=== PATIENT | female | born 1975 | race Caucasian/White ===

== ENCOUNTER 2024-10-19 20:44 | Emergency (ER) | payer OTHER, SELFPAY ==
[2024-10-19 20:52] VITALS: BP 177/92; PULSE 93; RESP 16; TEMP 37.4; O2SAT 98; BMI 34.2
[2024-10-19 21:33] LABS: Bacteria Urine Moderate (10-30); RBC Urine None Seen (0-5/HPF); Urine Volume 10mL (spun); WBC Urine 5-10/HPF (0-5/HPF)
[2024-10-19 21:34] LABS: Culture Indicated Urine Cult Not Indicated; Squamous Epithelial Cell Urine 1-5 /HPF (0-5/HPF)
--- NOTE | 2024-10-19 21:54 | ED.ABDPAIN ---
HPI - Abdominal Pain General Chief Complaint: Abdominal Pain Stated Complaint: near syncope, rt flank px t-7 Time Seen by Provider: 10/19/24 21:52 Source: patient, RN notes reviewed and old records reviewed Mode of arrival: Family Vehicle Limitations: no limitations History of Present Illness HPI narrative: 49-year-old female history of fibromyalgia, levothyroxine, mood disorder who presents with complaint of right flank pain that has been present since just before Zay approximately 6-7 days. Patient states has been mostly flank pain. She thought she was getting a UTI was drinking lot of water and cranberry juice but pain has continued to increase over time. She states it sort of waxes and wanes in intensity but is worse today. Movement does not increase it as well. Patient states she has not had any fevers. She has had nausea but no emesis. Denies any dysuria urgency or frequency or hematuria but notes she has had UTIs in the past without any symptoms. Does not report any history of pyelonephritis. States pain is more in the back but does come around to the side. States she has had prior appendectomy, does still have her gallbladder. Patient states home medications include Lyrica, levothyroxine, lamotrigine, duloxetine, escitalopram and trazodone. Patient states she has not allergy to Celebrex but can take ibuprofen without issue. No reported history of kidney stones. Related Data Previous Rx's Medication Instructions Recorded ciprofloxacin HCl 500 mg tablet 500 mg PO BID #20 tabs 10/19/24 Allergies Allergy/AdvReac Type Severity Reaction Status Date / Time celecoxib [From Celebrex] Allergy Swelling Verified 10/19/24 22:04 of Lip/Tongue/Throat Review of Systems Review of Systems ROS Unobtainable: All systems reviewed & are unremarkable except as noted in HPI and below Exam Narrative Exam Narrative: GENERAL: Alert and oriented x three, female in moderate distress HEENT: Head normocephalic, atraumatic, EOMI, pupils reactive, face symmetric, moist mucous membranes NECK: Supple, full range of motion CARDIOVASCULAR: Regular rate and rhythm without murmurs, rubs or gallops. RESPIRATORY: Breath sounds equal bilaterally, no wheezes rales or rhonchi. ABDOMEN: Soft patient has right upper quadrant tenderness greater than right lower quadrant but is present both. Normoactive bowel sounds all 4 quadrants. No guarding or rebound, rigidity, no mass : Positive for right CVA tenderness, no left CVA tenderness. EXTREMITIES: Normal range of motion, no clubbing or edema. Neurovascularly intact NEUROLOGICAL: Cranial nerves II through XII grossly intact. Moving all extremities SKIN: Warm, dry, no petechiae, no rashes or lesions. Initial Vital Signs Initial Vital Signs: Vital Signs Temperature 99.3 F 10/19/24 20:52 Pulse Rate 93 H 10/19/24 20:52 Respiratory Rate 16 10/19/24 20:52 Blood Pressure 177/92 H 10/19/24 20:52 Pulse Oximetry 98 10/19/24 20:52 Oxygen Delivery Method Room Air 10/19/24 20:52 Course Orders Ordered: ED Orders 10/19/24 21:04 Urine Culture Stat Urine Microscopic Stat 10/19/24 21:52 Complete Blood Count AUTO DIFF Stat Comprehensive Metabolic Panel Stat Lipase Stat 10/19/24 22:03 CT abdomen pelvis w con Stat Discontinued Medications Ciprofloxacin (Ciprofloxacin 250 Mg Tablet) 500 mg PO NOW ONE Stop: 10/19/24 23:24 Last Admin: 10/19/24 23:29 Dose: 500 mg Documented By: FREDI Ketorolac Tromethamine (Ketorolac 30 Mg/Ml Vial) 15 mg IV NOW ONE Stop: 10/19/24 22:04 Last Admin: 10/19/24 22:10 Dose: 15 mg Documented By: VASQUEZ Ondansetron HCl (Ondansetron 4 Mg/2 Ml Inj) 4 mg IV NOW PRN PRN Reason: Nausea And Vomiting Ondansetron HCl (Ondansetron 4 Mg Odt) 4 mg PO NOW PRN PRN Reason: Nausea And Vomiting Tramadol HCl (Tramadol 50 Mg Prepack) 1 bottle MISC DIRECTED ONE Stop: 10/19/24 23:37 Last Admin: 10/19/24 23:54 Dose: 1 bottle Documented By: ELEONORA Vital Signs Vital signs: Vital Signs - 8 hr 10/19/24 20:52 10/19/24 23:08 10/19/24 23:09 Temperature 99.3 F Pulse Rate 93 H 93 H Respiratory Rate 16 Blood Pressure 177/92 H 140/86 Pulse Oximetry 98 96 Oxygen Delivery Method Room Air 10/19/24 23:09 10/20/24 00:00 Temperature Pulse Rate 92 H 97 H Respiratory Rate Blood Pressure 145/79 H Pulse Oximetry 96 95 Oxygen Delivery Method Room Air MDM - Abdominal Pain Lab Data 10/19/24 21:52 10/19/24 21:52 Labs: Lab Results 10/19/24 10/19/24 Range/Units 21:04 21:52 WBC 10.8 (4.5-11.0) X10^3/uL RBC 4.45 (4.0-5.2) X10^6/uL Hgb 14.0 (12.0-16.0) g/dL Hct 41.2 (36-46) % MCV 92.7 (80-100) fL MCH 31.5 (26-34) PG MCHC 34.0 (30-36) % RDW 13.6 (11.6-14.8) % Plt Count 262 (150-400) X10^3/uL Neut % (Auto) 73.3 (50-75) % Lymph % (Auto) 15.2 L (25-40) % [place] % (Auto) 9.8 (3-14) % Eos % (Auto) 1.2 L (2-4) % Baso % (Auto) 0.5 (0-2) % Neut # (Auto) 7900 H (1886-9579) /uL Lymph # (Auto) 1600 (9063-6354) /uL [place] # (Auto) 1100 H (0-900) /uL Eos # (Auto) 100 (0-450) /uL Baso # (Auto) 100 (0-100) /uL Sodium 135 L (137-145) mmol/L Potassium 4.2 (3.4-5.1) mmol/L Chloride 100 (98-107) mmol/L Carbon Dioxide 28 (22-32) mmol/L BUN 16 (7-17) mg/dL Creatinine 1.00 (0.52-1.04) mg/dL Estimated GFR > 60 (>60) mL/min BUN/Creatinine Ratio 16.0 (6-22) Glucose 92 (70-100) mg/dL Calcium 9.0 (8.4-10.2) mg/dL Total Bilirubin 0.5 (0.2-1.3) mg/dL AST 34 (14-36) IU/L ALT 21 (<35) IU/L Alkaline Phosphatase 109 (38-126) U/L Total Protein 7.2 (6.3-8.2) g/dL Albumin 4.4 (3.5-5.0) g/dL Globulin 2.8 (1.7-4.1) g/dL Albumin/Globulin Ratio 1.6 (1.0-2.8) Lipase 101 (23-300) U/L Urine RBC None seen (0-5/HPF) Urine WBC 5-10/hpf H (0-5/HPF) Ur Squamous Epith Cells 1-5 /hpf (0-5/HPF) Urine Bacteria Moderate (10-30) H (None) Ur Culture Indicated? Cult not indicated Vol Urine Centrifuged 10ml (spun) Point of care testing: Urine Dip Bedside Urine Glucose Negative Bedside Urine Bilirubin - Negative Bedside Urine Ketone - Negative Urine Specific [place] 1.010 Bedside Urine Occult Blood - Negative Bedside Urine pH 8.0 Bedside Urine Protein - Negative Bedside Urine Urobilinogen - Negative Bedside Urine Nitrite - Negative Bedside Urine Leukocytes +/- [address] scan - abdomen/pelvis: Radiologist's Impression: Close Abdomen/Pelvis CT (Signed) Beba Harvey - 10/19/24 [place] [address] CT Scan Report Signed Patient: Raquel Trejo MR#: [id number] : 1975 Acct:[id number] Age/Sex: 49 / F Date of Service: 10/19/24 Loc: ED Accession Number: [id number] Procedure: CT abdomen pelvis w con Ordering Provider: Eryn Padilla D.O. PROCEDURE: CT ABDOMEN PELVIS W CON INDICATIONS: R flank and RUQ pain, tender w/ palp, juan f vs pyelo TECHNIQUE: After the administration of intravenous contrast, axial sections acquired from the lung bases to the pubic symphysis. Coronal and sagittal reformats were performed. For radiation dose reduction, the following was used: automated exposure control, adjustment of mA and/or kV according to patient size. COMPARISON: None. FINDINGS: Image quality: Streak metal artifact from bilateral hip arthroplasty limits evaluation of surrounding soft tissues.. Lower Chest: No significant findings. ABDOMEN: Liver: No solid mass. Gallbladder: No radiopaque gallstones or wall thickening. Biliary ducts: No biliary dilation. Pancreas: No ductal dilation. Spleen: Size is within normal limits. Adrenal Glands: No adrenal nodules. Kidneys and Ureters: No hydronephrosis. No solid mass. No complex renal cystic lesion which requires follow up. Stomach and Bowel: Normal colonic caliber, without significant wall thickening. Status post appendectomy. Peritoneum: No abnormal intraperitoneal fluid. No free air. Ventral Wall: No significant ventral hernia. Abdominal Nodes: No retroperitoneal or mesenteric adenopathy by size criteria. Vessels: Aorta and inferior vena cava are normal in size. PELVIS: Pelvic Organs: Status post hysterectomy. Bladder: No bladder wall thickening, accounting for underdistention. Pelvic Nodes: No enlarged lymph nodes. Miscellaneous: No inguinal hernias are seen. Bones: No aggressive osseous abnormality. Status post bilateral hip arthroplasty. IMPRESSION: No acute abdominopelvic process to explain patient's symptoms. Approved by: Beba Harvey M.D.,Ph.D. on 10/19/2024 at 23:19 MDM Narrative Medical decision making narrative: Labs show white count of 10.8 hemoglobin of 14 platelets of 262. Sodium is 135 electrolytes are otherwise normal with a creatinine of 1 LFTs are negative lipase is 101 Point of care urine negative for nitrates positive for leukocyte esterase. RBCs are none white cells are 5-10 squamous is 1-5 moderate bacteria. Urine was sent for culture. CT abdomen pelvis with contrast was obtained as patient symptoms seem somewhat consistent with pyelonephritis but she was also little bit tender in her right upper quadrant. She does not have an appendix anymore. Patient imaging does not show any acute changes at this time. Discussed with patient with normal LFTs bilirubin and patient's symptoms mainly in her flank I suspect she has more pyelonephritis. Patient was given dose of Toradol here in the department as well as ciprofloxacin. She is feeling improved with the medications. Discussed plan she feels comfortable with this discussed return precautions as well. Discharge Plan Departure Patient Disposition: Home Clinical Impression: Pyelonephritis Instructions: DI for Kidney Infection Activity Restrictions/Additional Instructions: Please follow up for recheck if your symptoms are not improving over the next several days. I suspect you have a kidney infection or pyelonephritis. Please take oral antibiotics until completed. Can take ibuprofen up to 600 mg every 6 hours and/or acetaminophen up to a 1000 mg every 6 hours as needed for pain. If inadequate for pain you can take tramadol 1-2 tablets every 6 hours as needed. [facility]. Please return for fevers, worsening abdominal back or flank pain, persistent vomiting, black or bloody stools, lightheadedness or passing out or other new or concerning changes. Prescriptions: New ciprofloxacin HCl 500 mg tablet 500 mg PO BID Qty: 20 0RF Stand Alone Forms: Patient Portal/API/Survey
--- NOTE | 2024-10-19 22:03 | DI.CT.S_ITS ---
PROCEDURE: CT ABDOMEN PELVIS W CON INDICATIONS: R flank and RUQ pain, tender w/ palp, juan f vs pyelo TECHNIQUE: After the administration of intravenous contrast, axial sections acquired from the lung bases to the pubic symphysis. Coronal and sagittal reformats were performed. For radiation dose reduction, the following was used: automated exposure control, adjustment of mA and/or kV according to patient size. COMPARISON: None. FINDINGS: Image quality: Streak metal artifact from bilateral hip arthroplasty limits evaluation of surrounding soft tissues.. Lower Chest: No significant findings. ABDOMEN: Liver: No solid mass. Gallbladder: No radiopaque gallstones or wall thickening. Biliary ducts: No biliary dilation. Pancreas: No ductal dilation. Spleen: Size is within normal limits. Adrenal Glands: No adrenal nodules. Kidneys and Ureters: No hydronephrosis. No solid mass. No complex renal cystic lesion which requires follow up. Stomach and Bowel: Normal colonic caliber, without significant wall thickening. Status post appendectomy. Peritoneum: No abnormal intraperitoneal fluid. No free air. Ventral Wall: No significant ventral hernia. Abdominal Nodes: No retroperitoneal or mesenteric adenopathy by size criteria. Vessels: Aorta and inferior vena cava are normal in size. PELVIS: Pelvic Organs: Status post hysterectomy. Bladder: No bladder wall thickening, accounting for underdistention. Pelvic Nodes: No enlarged lymph nodes. Miscellaneous: No inguinal hernias are seen. Bones: No aggressive osseous abnormality. Status post bilateral hip arthroplasty. IMPRESSION: No acute abdominopelvic process to explain patient's symptoms. Approved by: Beba Harvey M.D.,Ph.D. on 10/19/2024 at 23:19
[2024-10-19 22:04] LABS: Add Manual Diff / Slide Review NO; Basophils Absolute Auto 100 /uL (0-100); Basophils Percent Auto 0.5 % (0-2); Eosinophils Absolute Auto 100 /uL (0-450); Eosinophils Percent Auto 1.2 % (2-4); Hematocrit 41.2 % (36-46); Lymphocytes Absolute Auto 1600 /uL (1100-4500); Lymphocytes Percent Auto 15.2 % (25-40); Mean Corpuscular Hemoglobin 31.5 PG (26-34); Mean Corpuscular Volume 92.7 fL (80-100); Monocytes Absolute Auto 1100 /uL (0-900); Monocytes Percent Auto 9.8 % (3-14); Neutrophils Absolute Auto 7900 /uL (1500-7000); Neutrophils Percent Auto 73.3 % (50-75); Platelet Count 262 X10^3/uL (150-400); Red Blood Cell Count 4.45 X10^6/uL (4.0-5.2); Red Cell Distribution Width 13.6 % (11.6-14.8); White Blood Cell Count 10.8 X10^3/uL (4.5-11.0)
[2024-10-19] MEDS: KETOROLAC 30 MG/ML VIAL 15 MG IV (22:10)
[2024-10-19 22:14] LABS: Alanine Aminotransferase 21 IU/L (<35); Albumin 4.4 g/dL (3.5-5.0); Albumin Globulin Ratio 1.6 (1.0-2.8); Alkaline Phosphatase 109 U/L (38-126); Aspartate Aminotransferase 34 IU/L (14-36); Bilirubin Total 0.5 mg/dL (0.2-1.3); Blood Urea Nitrogen 16 mg/dL (7-17); Carbon Dioxide 28 mmol/L (22-32); Chloride 100 mmol/L (98-107); Estimated Glomerular Filt Rate > 60 mL/min (>60); Globulin 2.8 g/dL (1.7-4.1); Glucose 92 mg/dL (70-100); HEMOLYSIS < 15 (0-50); Lipase 101 U/L (23-300); Potassium 4.2 mmol/L (3.4-5.1); Sodium 135 mmol/L (137-145); Total Protein 7.2 g/dL (6.3-8.2)
[2024-10-19 23:08] VITALS: PULSE 93; O2SAT 96
[2024-10-19 23:09] VITALS: BP 140/86; PULSE 92; O2SAT 96
[2024-10-19] MEDS: CIPROFLOXACIN 250 MG TABLET 500 MG PO (23:29)
[2024-10-19] MEDS: TRAMADOL 50 MG PREPACK 1 BOTTLE MISC (23:54)
[2024-10-20] VITALS: BP 145/79; PULSE 97; O2SAT 95
== END 2024-10-20 | disposition home or self-care (01) ==
PROVIDERS: Emergency Provider Emergency Medicine
DX: N12 Tubulo-interstitial nephritis, not specified as acute or chronic (principal); B96.20 Unspecified Escherichia coli [E. coli] as the cause of diseases classified elsewhere; Z16.29 Resistance to other single specified antibiotic
CPT/HCPCS: 36415; 74177; 80053; 81003; 81015; 83690; 85025; 87077; 87086; 87186; 96374; 99284; J1885; Q9967

== ENCOUNTER → 2025-03-20 12:22 | Outpatient (CLI) | payer MEDICARE, SELFPAY | PROVIDERS: Visit Provider Nurse Practitioner Family | DX: R35.0 Frequency of micturition (principal) | CPT/HCPCS: 87077; 87086; 87186 ==

== ENCOUNTER → 2025-03-20 12:51 | Outpatient (CLI) | payer MEDICARE, SELFPAY ==
[2025-03-20 13:26] LABS: Add Manual Diff / Slide Review NO; Basophils Absolute Auto 0 /uL (0-100); Basophils Percent Auto 0.1 % (0-2); Eosinophils Absolute Auto 100 /uL (0-450); Eosinophils Percent Auto 1.1 % (2-4); Hematocrit 43.2 % (36-46); Hemoglobin 14.9 g/dL (12.0-16.0); Lymphocytes Absolute Auto 800 /uL (1100-4500); Lymphocytes Percent Auto 8.9 % (25-40); Mean Corpuscular HGB Conc 34.6 % (30-36); Mean Corpuscular Hemoglobin 32.3 PG (26-34); Mean Corpuscular Volume 93.5 fL (80-100); Monocytes Absolute Auto 600 /uL (0-900); Monocytes Percent Auto 6.9 % (3-14); Neutrophils Absolute Auto 7700 /uL (1500-7000); Platelet Count 231 X10^3/uL (150-400); Red Blood Cell Count 4.62 X10^6/uL (4.0-5.2); Red Cell Distribution Width 13.1 % (11.6-14.8); White Blood Cell Count 9.3 X10^3/uL (4.5-11.0)
[2025-03-20 13:40] LABS: Alanine Aminotransferase 15 IU/L (<35); Albumin 4.5 g/dL (3.5-5.0); Alkaline Phosphatase 107 U/L (38-126); Aspartate Aminotransferase 27 IU/L (14-36); BUN Creatinine Ratio 15.4 (6-22); Bilirubin Total 0.9 mg/dL (0.2-1.3); Blood Urea Nitrogen 14 mg/dL (7-17); Calcium 9.4 mg/dL (8.4-10.2); Carbon Dioxide 29 mmol/L (22-32); Chloride 101 mmol/L (98-107); Estimated Glomerular Filt Rate > 60 mL/min (>60); Globulin 2.2 g/dL (1.7-4.1); Glucose 92 mg/dL (70-99); HEMOLYSIS < 15 (0-50); Potassium 4.5 mmol/L (3.4-5.1); Sodium 137 mmol/L (137-145); Total Protein 6.7 g/dL (6.3-8.2)
== END ==
PROVIDERS: Referring Provider Nurse Practitioner Family; Visit Provider Nurse Practitioner Family
DX: R31.9 Hematuria, unspecified (principal); R35.0 Frequency of micturition
CPT/HCPCS: 36415; 80053; 85025; 87077; 87086; 87186